=== PATIENT | male | born 1980 | race African-American/Black ===

== ENCOUNTER 2020-09-27 05:50 | Emergency (ER) | payer SELFPAY ==
[~2020-09-27] VITALS: Ht 167.6 cm; Wt 72.6 kg
[2020-09-27 05:50] VITALS: BP 136/106
[2020-09-27] MEDS ORDERED: HYDROmorphone HCL 2 MG/ML VL IV ONE (06:45)
[2020-09-27] MEDS ORDERED: KETOROLAC TROMETH 30 MG/ML 1ML VIAL IV ONE (06:45)
[2020-09-27] MEDS ORDERED: ONDANSETRON HCL 4 MG/2 ML VIAL IV ONE (06:45)
== END 2020-09-27 07:47 | disposition left against medical advice (07) ==
LOC: ER 05:50
DX: S33.5XXA Sprain of ligaments of lumbar spine, initial encounter (principal); M79.18 Myalgia, other site; E78.00 Pure hypercholesterolemia, unspecified; Z88.6 Allergy status to analgesic agent; Z98.890 Other specified postprocedural states; W18.39XA Other fall on same level, initial encounter; Y93.89 Activity, other specified; Y92.89 Other specified places as the place of occurrence of the external cause; Y99.8 Other external cause status
CPT/HCPCS: 96374; 96375; 99284; J1170; J1885; J2405